=== PATIENT | male | born 1990 | race Two or more races ===

== ENCOUNTER 2022-01-26 07:41 | Emergency (ER) | payer OTHER ==
[~2022-01-26] VITALS: Ht 170.2 cm; Wt 90.7 kg
[2022-01-26 08:07] LABS: Urine Bacteria NONE SEEN /hpf (None Seen); Urine Blood Negative /uL (Negative); Urine Specific Gravity 1.009 (1.001-1.035); Urine WBC <1 /hpf (0 - 3)
[2022-01-26 08:45] VITALS: BP 145/72
[2022-01-26] MEDS ORDERED: metroNIDAZOLE 500 MG TAB PO ONE (09:00)
[2022-01-26] MEDS ORDERED: AMOX-277 PO (09:08)
[2022-01-26] MEDS ORDERED: IBUP800T27 PO (09:08)
== END 2022-01-26 09:20 | disposition home or self-care (01) ==
LOC: ER 07:41
DX: K02.9 Dental caries, unspecified (principal); A59.9 Trichomoniasis, unspecified; Z79.1 Long term (current) use of non-steroidal anti-inflammatories (NSAID); Z79.2 Long term (current) use of antibiotics
CPT/HCPCS: 81001